=== PATIENT | female | born 1945 | race Caucasian/White ===

== ENCOUNTER 2017-08-12 13:31 | Day surgery (SDC) | payer MEDICARE ==
[~2017-08-12 13:31] MED LIST: ALLO100 PO; AMOCLA250S PO; ASPI81CH PO; Aspir 8181 MG PO; CARV25 PO; CARV6.25 PO; CHOL10002 PO; CLON.5 PO; COMBIVENT RESPIM4 GM INH; CYAN100; DIALYVITE 800-1 EACH PO; ENTRESTO 24 MG1 EACH PO; FURO40 PO; INSLIS75I; IRON150C; ISOMON20 PO; Isosorbide Mono30 MG PO; LOSA50 PO; METO50ER; NYST100000 PO; OXYACE5T PO; PANT40 PO; Prinivil10 MG PO; SEVEC800 PO; SPIR25 PO; TRIA80TC TOP; Tylenol325 MG PO
== END 2017-08-12 15:08 | disposition home or self-care (01) ==
LOC: WOUND 13:31
DX: Z48.00 Encounter for change or removal of nonsurgical wound dressing (principal); L97.513 Non-pressure chronic ulcer of other part of right foot with necrosis of muscle; L97.523 Non-pressure chronic ulcer of other part of left foot with necrosis of muscle; L95.9 Vasculitis limited to the skin, unspecified; C90.01 Multiple myeloma in remission; I50.9 Heart failure, unspecified; N18.6 End stage renal disease; Z99.2 Dependence on renal dialysis
CPT/HCPCS: G0463

== ENCOUNTER 2017-08-19 13:42 | Day surgery (SDC) | payer MEDICARE | END 2017-08-19 15:56 | disposition home or self-care (01) | LOC: WOUND 13:42 | DX: Z48.00 Encounter for change or removal of nonsurgical wound dressing (principal); L97.513 Non-pressure chronic ulcer of other part of right foot with necrosis of muscle; L97.523 Non-pressure chronic ulcer of other part of left foot with necrosis of muscle; L95.9 Vasculitis limited to the skin, unspecified; C90.01 Multiple myeloma in remission | CPT/HCPCS: 87070; 87077; 87147; 87186; 87205; G0463 ==

== ENCOUNTER 2017-08-26 00:43 | Day surgery (SDC) | payer MEDICARE | END 2017-08-26 22:52 | disposition home or self-care (01) | LOC: WOUND 00:43 | PROC: 0HBNXZZ Excision of Left Foot Skin, External Approach (ICD-10-PCS; principal; 2017-08-26) | DX: Z48.00 Encounter for change or removal of nonsurgical wound dressing (principal); L97.513 Non-pressure chronic ulcer of other part of right foot with necrosis of muscle; L97.523 Non-pressure chronic ulcer of other part of left foot with necrosis of muscle; L95.9 Vasculitis limited to the skin, unspecified; C90.01 Multiple myeloma in remission | CPT/HCPCS: 87015; 87071; 87075; 87077; 87102; 87116; 87147; 87186; 87205; 87206; 88305; 88313; G0463 ==

== ENCOUNTER 2017-09-02 13:40 | Day surgery (SDC) | payer MEDICARE | END 2017-09-02 16:26 | disposition home or self-care (01) | LOC: WOUND 13:40 | DX: Z48.00 Encounter for change or removal of nonsurgical wound dressing (principal); L97.513 Non-pressure chronic ulcer of other part of right foot with necrosis of muscle; L97.523 Non-pressure chronic ulcer of other part of left foot with necrosis of muscle; L95.9 Vasculitis limited to the skin, unspecified; C90.01 Multiple myeloma in remission; N18.6 End stage renal disease; I50.9 Heart failure, unspecified | CPT/HCPCS: G0463 ==

== ENCOUNTER 2017-09-16 01:05 | Day surgery (SDC) | payer MEDICARE | END 2017-09-16 14:24 | disposition home or self-care (01) | LOC: WOUND 01:05 | DX: Z48.00 Encounter for change or removal of nonsurgical wound dressing (principal); L97.513 Non-pressure chronic ulcer of other part of right foot with necrosis of muscle; L97.523 Non-pressure chronic ulcer of other part of left foot with necrosis of muscle; L95.9 Vasculitis limited to the skin, unspecified; C90.01 Multiple myeloma in remission | CPT/HCPCS: G0463 ==

== ENCOUNTER → 2017-09-22 | Outpatient (CLI) | payer MEDICARE ==
[2017-09-22 12:58] LABS: Albumin/Globulin Ratio 0.8 (0.8-1.8); Bilirubin, Direct 0.3 mg/dL (0.0-0.3); Bilirubin, Indirect 0.4 mg/dL (0.1-0.7); Bilirubin, Total 0.7 mg/dL (0.1-1.0); Globulin, Blood 3.6 g/dL (2.2-4.0); Total Protein, Blood 6.6 g/dL (6.4-8.2)
== END | disposition home or self-care (01) ==
LOC: LAB DAV 12:35
PROVIDERS: Internal Medicine Nephrology
DX: R10.9 Unspecified abdominal pain (principal)
CPT/HCPCS: 80076; 82150; 83690

== ENCOUNTER 2017-09-23 00:36 | Day surgery (SDC) | payer MEDICARE | END 2017-09-23 13:27 | disposition home or self-care (01) | LOC: WOUND 00:36 | DX: Z48.00 Encounter for change or removal of nonsurgical wound dressing (principal); L97.513 Non-pressure chronic ulcer of other part of right foot with necrosis of muscle; L97.523 Non-pressure chronic ulcer of other part of left foot with necrosis of muscle; L95.9 Vasculitis limited to the skin, unspecified; C90.01 Multiple myeloma in remission | CPT/HCPCS: G0463 ==

== ENCOUNTER 2017-09-30 00:29 | Day surgery (SDC) | payer MEDICARE | END 2017-09-30 14:17 | disposition home or self-care (01) | LOC: WOUND 00:29 | DX: Z48.00 Encounter for change or removal of nonsurgical wound dressing (principal); L97.513 Non-pressure chronic ulcer of other part of right foot with necrosis of muscle; L97.523 Non-pressure chronic ulcer of other part of left foot with necrosis of muscle; L95.9 Vasculitis limited to the skin, unspecified; C90.01 Multiple myeloma in remission | CPT/HCPCS: G0463 ==

== ENCOUNTER 2017-10-07 11:11 | Day surgery (SDC) | payer MEDICARE | END 2017-10-07 22:53 | disposition home or self-care (01) | LOC: WOUND 11:11 | DX: Z48.00 Encounter for change or removal of nonsurgical wound dressing (principal); L97.513 Non-pressure chronic ulcer of other part of right foot with necrosis of muscle; L97.523 Non-pressure chronic ulcer of other part of left foot with necrosis of muscle; L95.9 Vasculitis limited to the skin, unspecified; C90.01 Multiple myeloma in remission | CPT/HCPCS: G0463 ==

== ENCOUNTER 2017-10-14 14:55 | Day surgery (SDC) | payer MEDICARE | END 2017-10-14 23:19 | disposition home or self-care (01) | LOC: WOUND 14:55 | DX: Z48.00 Encounter for change or removal of nonsurgical wound dressing (principal); L97.513 Non-pressure chronic ulcer of other part of right foot with necrosis of muscle; L97.523 Non-pressure chronic ulcer of other part of left foot with necrosis of muscle; L95.9 Vasculitis limited to the skin, unspecified; C90.01 Multiple myeloma in remission; N18.6 End stage renal disease; I50.9 Heart failure, unspecified | CPT/HCPCS: G0463 ==

== ENCOUNTER 2017-11-11 13:34 | Day surgery (SDC) | payer MEDICARE | END 2017-11-11 22:46 | disposition home or self-care (01) | LOC: US 13:34 | PROC: 0W9G3ZZ Drainage of Peritoneal Cavity, Percutaneous Approach (ICD-10-PCS; principal; 2017-11-11) | DX: J90 Pleural effusion, not elsewhere classified (principal) | CPT/HCPCS: 32555; 71045 ==